=== PATIENT | female | born 1965 | race Caucasian/White ===

== ENCOUNTER 2023-07-26 11:49 | Emergency (ER) | payer OTHER ==
[~2023-07-26] VITALS: Ht 162.6 cm; Wt 91.0 kg
[2023-07-26 12:11] VITALS: BP 143/84; PULSE 98; RESP 18; TEMP 98.6; O2SAT 98
[2023-07-26] MEDS ORDERED: ONDANSETRON 4MG ODT PO STA (12:31)
[2023-07-26] MEDS ORDERED: FAMOTIDINE 20MG TABLET PO ONE (12:45)
[2023-07-26 12:47] LABS: BASOPHILS % 0.3 % (0.0-2.0); EOSINOPHILS % 0.6 % (0.0-5.0); HEMOGLOBIN. 15.3 g/dL (12.0-16.0); LYMPHOCYTES % 26.9 % (20.0-50.0); MEAN CORPUSCULAR HEMOGLOBIN 29.9 pg (28.0-32.0); MEAN CORPUSCULAR HGB CONC 33.9 g/dL (31.0-37.0); MEAN CORPUSCULAR VOLUME 88.3 fL (81.0-99.0); MEAN PLATELET VOLUME 8.6 fl (7.4-10.4); MONOCYTES % 9.4 % (2.0-8.0); NEUTROPHILS % 62.8 % (40.0-76.0); PLATELET 242 x1000/uL (130-400); WHITE BLOOD COUNT 7.7 x1000/uL (4.5-11.0)
[2023-07-26 14:19] LABS: CHLORIDE 104 mEq/L (98-107); INDEX HEMOLYSI 1 (1-3); INDEX ICTERIC 1 (1-4); INDEX LIPEMIC 1 (1-3); SODIUM 134 mEq/L (136-145)
[2023-07-26 14:26] LABS: ALANINE AMINOTRANSFERASE 67 IU/L (13-61); ALBUMIN 4.3 g/dL (3.4-5.0); ASPARTATE AMINOTRANSFERASE 38 IU/L (15-37); BILIRUBIN TOTAL 0.4 mg/dL (0.1-1.0); CALCIUM 9.1 mg/dL (8.5-10.1); CARBON DIOXIDE 24 mEq/L (21-32); GLUCOSE 125 mg/dL (70-105); PROTEIN TOTAL 9.5 g/dL (6.0-8.3); UREA NITROGEN BLOOD 16 mg/dL (7-21)
[2023-07-26 15:07] LABS: TROPONIN I HIGH SENSITIVITY 4 ng/L (<54)
[2023-07-26] MEDS ORDERED: ONDANSETRON 4MG ODT PO NR (15:15)
[2023-07-26] MEDS ORDERED: FAMOTIDINE 20MG TABLET PO NR (15:15)
[2023-07-26 16:19] LABS: CLARITY URINE CLOUDY (CLEAR); COLOR URINE DARK YELLOW (YELLOW); GLUCOSE URINE NEGATIVE (NEGATIVE); KETONES URINE TRACE (NEGATIVE); LEUKOCYTE ESTERASE URINE TRACE (NEGATIVE); NITRITE URINE NEGATIVE (NEGATIVE); OCCULT BLOOD URINE 1+ (NEGATIVE); PROTEIN URINE 2+ (NEGATIVE); SPECIFIC GRAVITY URINE 1.028 (1.005-1.030)
[2023-07-26 16:55] LABS: RBC URINE 0-2 /hpf (0-2); SQUAMOUS EPITHELIAL CELL URINE 1+ /lpf (RARE/1+)
[2023-07-26 16:56] LABS: BACTERIA URINE 1+; YEAST URINE NONE SEEN
[2023-07-26] MEDS ORDERED: POTASSIUM CHLORIDE 20MEQ TABLET SR PO NR (17:00)
[2023-07-26] MEDS ORDERED: MAGNESIUM GLUCONATE 500MG TABLET PO SCH (17:00)
[2023-07-26] MEDS ORDERED: POTA-205 MT ×2 (17:18)
[2023-07-26] MEDS ORDERED: MAGN200T5 MT (17:19)
[2023-07-26] MEDS ORDERED: POTA-354 MT (17:35)
== END 2023-07-26 17:56 | disposition home or self-care (01) ==
LOC: ER 11:49
DX: R11.2 Nausea with vomiting, unspecified (principal); K52.9 Noninfective gastroenteritis and colitis, unspecified; F41.9 Anxiety disorder, unspecified; E11.9 Type 2 diabetes mellitus without complications; I10 Essential (primary) hypertension; Z90.49 Acquired absence of other specified parts of digestive tract
CPT/HCPCS: 99284; 80053; 81003; 85025; 87086; 84484; 36415; 93005; Q0162